=== PATIENT | male | born 1965 | race Caucasian/White ===

== ENCOUNTER → 2020-10-26 | Outpatient (CLI) | payer BC ==
[~2020-10-26] MED LIST: LOTENSIN20 MG PO; OMEPRAZOLE40 MG PO
== END ==
LOC: SJCVCIMAG 12:58
PROVIDERS: ATTEND Internal Medicine Cardiovascular Disease
DX: R07.9 Chest pain, unspecified (principal); I10 Essential (primary) hypertension; Z87.891 Personal history of nicotine dependence

== ENCOUNTER → 2020-10-27 | Outpatient (CLI) | payer BC ==
[~2020-10-27] VITALS: Ht 180.3 cm; Wt 88.5 kg
[2020-10-27 10:16] VITALS: BP 127/81
[2020-10-27 10:41] LABS: HEMATOCRIT 40.9 % (42.0-52.0); MCH 31.9 pg (26.0-34.0); MCHC 34.3 g/dL (28.0-37.0); MCV 92.9 fL (80.0-100.0); RBC 4.4 mil/uL (4.50-6.00); RDW 13.4 % (10.5-14.5); WBC 6.2 thou/uL (4.0-11.0)
[2020-10-27 10:53] LABS: CALCIUM 9.5 mg/dL (8.5-10.1); CREATININE 1.1 mg/dL (0.7-1.3); POTASSIUM 4.2 mmol/L (3.5-5.1)
--- NOTE | 2020-10-27 11:37 | EKG ---
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
[2020-10-27 12:51] LABS: CHOLESTEROL 167 mg/dL (<200); HDL CHOLESTEROL 35 mg/dL (>40); LDL CHOLESTEROL 102 mg/dL (<100); TC:HDL 4.8 Ratio (Not establshd); TRIGLYCERIDE 154 mg/dL (<150); VLDL 31 mg/dL (<40)
--- NOTE | 2020-10-27 14:21 | CATHLAB ---
[facility] [place] [address] INVASIVE PROCEDURE REPORT Name: JOVANY HIGUERA Room #: REG [facility]#: [id number] Admission: 10/27/20 Attend Phys: Moi Miller MD Discharge: Date of : 65 Report #: [id number] THIS REPORT FOR: cc: Humberto Travis MD, John H. MD Park, Jin S. MD ~ APPROVED REPORT Study performed: 10/27/2020 11:02:06 Patient Details Patient Status: Out-Patient Room #: The patient is a 55 year-old male Event Personnel Moi Miller Casting Finisher, Karthik Santos RN RN, Janeth Murray Monitor, [place], Zoila RTR Scrub Procedures Performed Art Access - R femoral artery* 42563 Initial Mod Sed Same Phys/QHP Gr5y 754313 Left Heart Cath w/or w/o Coronaries [id number] LHC FFR [id number] FFR Hemostasis w/ Mynx Indication Dyspnea, Positive stress test, Chest pain Risk Factors Hypercholesterolemia, Hypertension Procedure Narrative The patient was brought electively to the Cardiac Catheterization Laboratory and was prepped and draped in a sterile manner. The Right Groin^ was infiltrated with 1% Lidocaine subcutaneous anesthesia. A PINNACLE 4FR Sheath #[id number] sheath was inserted into the RFA^. Coronary angiography was performed using coronary diagnostic catheters. The right coronary system was accessed and visualized with a JR 4 catheter. The left coronary system was accessed and visualized with a JL 4 catheter. The left ventricle was accessed and visualized with a Pigtail catheter. Left ventricular/Aortic Valve gradient assessed via catheter pullback. Left ventriculogram was performed in HOBBS projection. Pre-demployment femoral angiogram was performed . Closure device was deployed with a 6 Fr Mynx. The patient tolerated the procedure well and there were no complications associated with the procedure. There was no hematoma. Pre FFR 1.00 Post FFR [facility] [place] [address] INVASIVE PROCEDURE REPORT Name: JOVANY HIGUERA Room #: REG [facility]#: [id number] Admission: 10/27/20 Attend Phys: Moi Miller MD Discharge: Date of : 65 Report #: [id number] Intraoperative Conscious Sedation Sedation start time: 11:48 Case end Time: 12:27 Fentanyl 50 mcg Versed 1 mg Fluoro Time: 5.40 minutes Dose: DAP 9369.00 cGycm2 1347 mGy Contrast Type and Amount: Omnipaque 150 ml Coronary Angiography The patient's coronary anatomy is right dominant. Diagnostic Cath Left Main The left main artery is a large-caliber vessel, patent with no flow-limiting lesions. LAD The LAD is a moderate-sized caliber vessel, divides into a dual LAD system in the proximal segment. The medial LAD supplying septal perforators has a moderate stenosis in the mid segment, 50%. The lateral LAD supplying the diagonal arteries is patent with no flow-limiting lesions. An IFR was performed on the mid LAD segment, nonischemic. Circumflex Left circumflex artery is a moderate-sized caliber vessel with mild disease proximally. OM1 This is a small to moderate-sized caliber vessel, patent with no flow-limiting lesions. OM2 This is a small to moderate-sized caliber vessel, patent with no flow-limiting lesions. Right Coronary The RCA is a moderate to large caliber vessel, dominant. There is a mild stenosis in the midsegment, 20%. R PDA This is a moderate-sized caliber vessel, patent with no flow-limiting lesions. RPLV This is a moderate-sized caliber vessel, patent with no flow-limiting lesions. Left Ventriculography The left ventricle is normal in size with normal contractility. The left ventricular ejection fraction is estimated to be 50%. Hemodynamics The aortic pressure is 138/79 mmHg with a mean of 103 mmHg. The left ventricular pressure is 144/15 mmHg with a mean of mmHg. The left [facility] [address] [place] [address] INVASIVE PROCEDURE REPORT Name: JOVANY HIGUERA Room #: REG CL ..#: [id number] Admission: 10/27/20 Attend Phys: Moi Miller MD Discharge: Date of : 65 Report #: [id number] ventricular end diastolic pressure is 25 mmHg. Conclusion 1. There is a moderate stenosis in the medial LAD, supplying the septal perforators. An IFR was performed, nonischemic. 2. There is mild disease in the left circumflex and RCA. 3. The LV systolic function is borderline normal. 4. Recommend aggressive risk factor management. <ELECTRONICALLY SIGNED> By: Moi Miller MD 10/27/20 1420 1420 1420 Moi Miller MD /INF
== END | disposition home or self-care (01) ==
LOC: CATH 06:17
PROVIDERS: ATTEND Internal Medicine Cardiovascular Disease
DX: R07.9 Chest pain, unspecified (principal); R94.39 Abnormal result of other cardiovascular function study; R06.00 Dyspnea, unspecified; I10 Essential (primary) hypertension; I25.10 Atherosclerotic heart disease of native coronary artery without angina pectoris; E78.00 Pure hypercholesterolemia, unspecified; Z98.890 Other specified postprocedural states; Z79.899 Other long term (current) drug therapy; Z88.0 Allergy status to penicillin